=== PATIENT | female | born 1985 | race Caucasian/White ===

== ENCOUNTER 2017-04-22 15:48 | Emergency (ER) | payer OTHER ==
[~2017-04-22] VITALS: Ht 162.6 cm; Wt 83.9 kg
[2017-04-22 15:54] VITALS: BP 114/61
== END 2017-04-22 18:15 | disposition left against medical advice (07) ==
LOC: ED 15:48
DX: Z53.21 Procedure and treatment not carried out due to patient leaving prior to being seen by health care provider (principal)

== ENCOUNTER 2017-07-30 15:54 | Emergency (ER) | payer OTHER ==
[2017-07-30 21:43] LABS: BASOPHIL % 0.7 % (0-2); PLATELET COUNT 331 x10^3mcL (130-400); RED CELL DISTRIBUTION WIDTH 13.6 % (11.5-14.5)
[2017-07-30 21:47] LABS: CALCIUM 8.9 mg/dL (8.5-10.1); CARBON DIOXIDE 31.9 mmol/L (21-32); CHLORIDE SERUM 105 mmol/L (98-107); CREATININE SERUM 0.7 mg/dL (0.6-1.0); GFR1 > 60 mL/min; GLUCOSE SERUM 121 mg/dL (74-106); MAGNESIUM 2.1 mg/dL (1.8-2.4); POTASSIUM SERUM 3.4 mmol/L (3.5-5.1); SODIUM SERUM 141 mmol/L (136-145)
[2017-07-30 22:40] VITALS: BP 122/76
[2017-07-30 22:57] LABS: AMPHETAMINE QUAL UR NONE DETECTED (NEG <=1000)
== END 2017-07-30 22:40 | disposition home or self-care (01) ==
LOC: ED 15:54
PROVIDERS: Emergency Medicine
DX: F41.0 Panic disorder [episodic paroxysmal anxiety] (principal); F31.9 Bipolar disorder, unspecified
CPT/HCPCS: 36415

== ENCOUNTER 2017-09-02 16:52 | Emergency (ER) | payer OTHER ==
[~2017-09-02] VITALS: Ht 157.5 cm; Wt 90.9 kg
[2017-09-02 16:58] VITALS: Ht 157.5 cm; Wt 90.9 kg
[2017-09-02 17:38] VITALS: BP 119/79
== END 2017-09-02 17:38 | disposition home or self-care (01) ==
LOC: ED 16:52
DX: R19.7 Diarrhea, unspecified (principal); K60.2 Anal fissure, unspecified

== ENCOUNTER 2017-09-29 15:44 | Emergency (ER) | payer OTHER ==
[~2017-09-29] VITALS: Ht 160 cm; Wt 88.5 kg
[2017-09-29 15:52] VITALS: Ht 160 cm; Wt 88.5 kg
[2017-09-29 18:01] VITALS: BP 104/75
== END 2017-09-29 18:01 | disposition home or self-care (01) ==
LOC: ED 15:44
DX: Z76.0 Encounter for issue of repeat prescription (principal); L25.9 Unspecified contact dermatitis, unspecified cause; Z91.14 Patient's other noncompliance with medication regimen

== ENCOUNTER 2017-11-29 18:49 | Emergency (ER) | payer OTHER ==
[~2017-11-29] VITALS: Ht 160 cm; Wt 94.3 kg
[2017-11-29 18:51] VITALS: Ht 160 cm; Wt 94.3 kg
[2017-11-29 21:07] VITALS: BP 115/73
== END 2017-11-29 21:07 | disposition home or self-care (01) ==
LOC: ED 18:49
DX: R42 Dizziness and giddiness (principal); R05 Cough; R53.83 Other fatigue; Z76.0 Encounter for issue of repeat prescription

== ENCOUNTER 2018-06-04 17:50 | Emergency (ER) | payer OTHER ==
[~2018-06-04] VITALS: Ht 162.6 cm; Wt 104.3 kg
[2018-06-04 17:54] VITALS: Ht 162.6 cm; Wt 104.3 kg
[2018-06-04 20:50] VITALS: BP 111/67
== END 2018-06-04 20:50 | disposition home or self-care (01) ==
LOC: ED 17:50
DX: F41.9 Anxiety disorder, unspecified (principal); R07.89 Other chest pain; F31.9 Bipolar disorder, unspecified; F17.210 Nicotine dependence, cigarettes, uncomplicated

== ENCOUNTER 2018-06-05 15:57 | Emergency (ER) | payer OTHER ==
[~2018-06-05] VITALS: Ht 162.6 cm; Wt 99.8 kg
[2018-06-05 16:07] VITALS: Ht 162.6 cm; Wt 99.8 kg
[2018-06-05 16:59] LABS: BASOPHIL % 0.9 % (0-2); PLATELET COUNT 277 x10^3mcL (130-400); RED CELL DISTRIBUTION WIDTH 13.6 % (11.5-14.5)
[2018-06-05 17:14] LABS: CALCIUM 8.1 mg/dL (8.5-10.1); CARBON DIOXIDE 26.5 mmol/L (21-32); CHLORIDE SERUM 102 mmol/L (98-107); CREATININE SERUM 0.7 mg/dL (0.6-1.0); GFR1 > 60 mL/min; GLUCOSE SERUM 100 mg/dL (74-106); POTASSIUM SERUM 3.4 mmol/L (3.5-5.1); SODIUM SERUM 136 mmol/L (136-145)
[2018-06-05 17:16] LABS: ALBUMIN 3.3 g/dL (3.4-5.0); ALKALINE PHOSPHATASE 81 U/L (46-116); ALT/SGPT 22 U/L (14-59); AST/SGOT 11 U/L (15-37); BILIRUBIN TOTAL 0.2 mg/dL (0.20-1.00); TOTAL PROTEIN, SERUM 6.9 g/dL (6.4-8.2)
[2018-06-05 17:17] LABS: AMPHETAMINE QUAL UR NONE DETECTED (See below)
[2018-06-05 18:59] VITALS: BP 115/80
== END 2018-06-05 18:59 | disposition home or self-care (01) ==
LOC: ED 15:57
PROVIDERS: Emergency Medicine
DX: R00.2 Palpitations (principal); F41.9 Anxiety disorder, unspecified; F31.9 Bipolar disorder, unspecified; I49.9 Cardiac arrhythmia, unspecified
CPT/HCPCS: 36415; G0480

== ENCOUNTER 2018-06-06 21:30 | Emergency (ER) | payer OTHER ==
[2018-06-06 21:37] VITALS: Ht 160 cm
[2018-06-07 01:26] VITALS: BP 140/50
== END 2018-06-07 01:26 | disposition home or self-care (01) ==
LOC: ED 21:30
DX: Z76.0 Encounter for issue of repeat prescription (principal); F31.9 Bipolar disorder, unspecified; F17.210 Nicotine dependence, cigarettes, uncomplicated; F41.9 Anxiety disorder, unspecified; E66.01 Morbid (severe) obesity due to excess calories; Z68.1 Body mass index [BMI] 19.9 or less, adult; Z71.6 Tobacco abuse counseling
CPT/HCPCS: 99406

== ENCOUNTER 2018-07-03 11:15 | Emergency (ER) | payer OTHER ==
[~2018-07-03] VITALS: Ht 162.6 cm; Wt 99.8 kg
[2018-07-03 11:19] VITALS: Ht 162.6 cm; Wt 99.8 kg
[2018-07-03 13:43] VITALS: BP 120/71
== END 2018-07-03 13:43 | disposition home or self-care (01) ==
LOC: ED 11:15
DX: Z76.0 Encounter for issue of repeat prescription (principal); F41.9 Anxiety disorder, unspecified; F31.9 Bipolar disorder, unspecified; F17.210 Nicotine dependence, cigarettes, uncomplicated; Z86.79 Personal history of other diseases of the circulatory system

== ENCOUNTER 2018-09-28 14:10 | Emergency (ER) | payer OTHER ==
[~2018-09-28] VITALS: Ht 160 cm; Wt 86.2 kg
[2018-09-28 14:38] VITALS: Ht 160 cm; Wt 86.2 kg
[2018-09-28 16:25] VITALS: BP 110/70
== END 2018-09-28 16:25 | disposition home or self-care (01) ==
LOC: ED 14:10
DX: F41.9 Anxiety disorder, unspecified (principal); F17.210 Nicotine dependence, cigarettes, uncomplicated; Z76.0 Encounter for issue of repeat prescription; Z13.89 Encounter for screening for other disorder; I47.1 Supraventricular tachycardia; I49.9 Cardiac arrhythmia, unspecified
CPT/HCPCS: 99406

== ENCOUNTER 2018-12-20 10:15 | Emergency (ER) | payer OTHER ==
[~2018-12-20] VITALS: Ht 160 cm; Wt 99.8 kg
[2018-12-20 10:21] VITALS: Ht 160 cm; Wt 99.8 kg
[2018-12-20 11:13] LABS: UA SPECIFIC GRAVITY 1.025 (1.005-1.035); microscopic required? YES; urine erythrocyte 3+ (NEGATIVE)
[2018-12-20 11:16] LABS: CALCIUM 8.4 mg/dL (8.5-10.1); CARBON DIOXIDE 30.8 mmol/L (21-32); CHLORIDE SERUM 106 mmol/L (98-107); CREATININE SERUM 0.7 mg/dL (0.6-1.0); GFR1 > 60 mL/min; GLUCOSE SERUM 102 mg/dL (74-106); POTASSIUM SERUM 3.9 mmol/L (3.5-5.1); SODIUM SERUM 140 mmol/L (136-145)
[2018-12-20 11:18] LABS: BASOPHIL % 0.3 % (0-2); PLATELET COUNT 334 x10^3mcL (130-400); RED CELL DISTRIBUTION WIDTH 13.4 % (11.5-14.5)
[2018-12-20 11:22] LABS: ALKALINE PHOSPHATASE 104 U/L (46-116); ALT/SGPT 25 U/L (14-59); AST/SGOT 11 U/L (15-37); BILIRUBIN TOTAL 0.14 mg/dL (0.20-1.00); TOTAL PROTEIN, SERUM 6.8 g/dL (6.4-8.2)
[2018-12-20 11:24] LABS: ALBUMIN 3.3 g/dL (3.4-5.0)
[2018-12-20 11:41] LABS: AMPHETAMINE QUAL UR POSITIVE (See below)
[2018-12-20 18:33] VITALS: BP 109/71
== END 2018-12-20 20:04 ==
LOC: ED 10:15
PROVIDERS: Emergency Medicine
DX: R45.851 Suicidal ideations (principal); T63.441A Toxic effect of venom of bees, accidental (unintentional), initial encounter; N39.0 Urinary tract infection, site not specified; F31.9 Bipolar disorder, unspecified; I49.9 Cardiac arrhythmia, unspecified; I47.1 Supraventricular tachycardia; Y92.89 Other specified places as the place of occurrence of the external cause
CPT/HCPCS: 36415; G0480; Q0163

== ENCOUNTER 2019-02-08 19:41 | Emergency (ER) | payer OTHER ==
[~2019-02-08] VITALS: Ht 160 cm; Wt 105.7 kg
[2019-02-08 20:08] VITALS: BP 113/79; Ht 160 cm; Wt 105.7 kg
== END 2019-02-08 21:59 | disposition home or self-care (01) ==
LOC: ED 19:41
DX: J02.9 Acute pharyngitis, unspecified (principal); F41.9 Anxiety disorder, unspecified; F32.9 Major depressive disorder, single episode, unspecified; F17.210 Nicotine dependence, cigarettes, uncomplicated
CPT/HCPCS: 99406

== ENCOUNTER 2019-02-13 17:14 | Emergency (ER) | payer OTHER ==
[~2019-02-13] VITALS: Ht 167.6 cm; Wt 103.9 kg
[2019-02-13 17:22] VITALS: Ht 167.6 cm; Wt 103.9 kg
[2019-02-13 19:35] VITALS: BP 134/85
== END 2019-02-13 19:41 | disposition home or self-care (01) ==
LOC: ED 17:14
DX: F41.9 Anxiety disorder, unspecified (principal); F31.9 Bipolar disorder, unspecified; Z76.0 Encounter for issue of repeat prescription
CPT/HCPCS: J7030

== ENCOUNTER 2019-06-28 14:45 | Emergency (ER) | payer OTHER ==
[~2019-06-28] VITALS: Ht 165.1 cm; Wt 91.2 kg
[2019-06-28 14:53] VITALS: Ht 165.1 cm; Wt 91.2 kg
[2019-06-28 16:31] VITALS: BP 102/51
== END 2019-06-28 16:31 | disposition home or self-care (01) ==
LOC: ED 14:45
DX: F41.9 Anxiety disorder, unspecified (principal); F31.9 Bipolar disorder, unspecified; Z76.0 Encounter for issue of repeat prescription

== ENCOUNTER 2019-07-31 19:15 | Emergency (ER) | payer OTHER ==
[~2019-07-31] VITALS: Ht 165.1 cm; Wt 86.2 kg
[2019-07-31 19:21] VITALS: Ht 165.1 cm; Wt 86.2 kg
[2019-07-31 20:42] LABS: BASOPHIL % 0.2 % (0-2); PLATELET COUNT 353 x10^3mcL (130-400)
[2019-07-31 20:48] LABS: CALCIUM 8.4 mg/dL (8.5-10.1); CARBON DIOXIDE 25.2 mmol/L (21-32); CHLORIDE SERUM 105 mmol/L (98-107); CREATININE SERUM 0.8 mg/dL (0.6-1.0); GFR1 > 60 mL/min; GLUCOSE SERUM 97 mg/dL (74-106); POTASSIUM SERUM 3.3 mmol/L (3.5-5.1); SODIUM SERUM 140 mmol/L (136-145)
[2019-07-31 20:53] LABS: ALBUMIN 3.6 g/dL (3.4-5.0); ALKALINE PHOSPHATASE 90 U/L (46-116); ALT/SGPT 19 U/L (14-59); AST/SGOT 12 U/L (15-37); BILIRUBIN TOTAL 0.2 mg/dL (0.20-1.00); TOTAL PROTEIN, SERUM 7.6 g/dL (6.4-8.2)
[2019-07-31 20:57] LABS: AMPHETAMINE QUAL UR POSITIVE (See below)
[2019-07-31 22:43] LABS: microscopic required? NO
[2019-07-31 22:56] LABS: urine erythrocyte NEGATIVE (NEGATIVE)
[2019-08-01 15:35] VITALS: BP 108/48
== END 2019-08-01 15:35 ==
LOC: ED 19:15
PROVIDERS: Emergency Medicine
DX: R45.851 Suicidal ideations (principal); D72.829 Elevated white blood cell count, unspecified; F31.9 Bipolar disorder, unspecified; F20.9 Schizophrenia, unspecified
CPT/HCPCS: 36415; 87804; G0480

== ENCOUNTER 2019-09-04 12:17 | Emergency (ER) | payer OTHER ==
[~2019-09-04] VITALS: Ht 162.6 cm; Wt 96.6 kg
[2019-09-04 12:19] VITALS: BP 114/78; Ht 162.6 cm; Wt 96.6 kg
== END 2019-09-04 12:55 | disposition home or self-care (01) ==
LOC: ED 12:17
DX: F31.9 Bipolar disorder, unspecified (principal); F20.9 Schizophrenia, unspecified; Z76.0 Encounter for issue of repeat prescription

== ENCOUNTER 2020-05-30 12:32 | Emergency (ER) | payer OTHER ==
[~2020-05-30] VITALS: Ht 165.1 cm; Wt 72.6 kg
[2020-05-30 12:43] VITALS: Ht 165.1 cm; Wt 72.6 kg
[2020-05-30 13:20] LABS: BASOPHIL % 0.5 % (0-2); PLATELET COUNT 283 x10^3mcL (130-400); RED CELL DISTRIBUTION WIDTH 14.3 % (11.5-14.5)
[2020-05-30 13:32] LABS: CALCIUM 8.7 mg/dL (8.5-10.1); CARBON DIOXIDE 27.5 mmol/L (21-32); CHLORIDE SERUM 107 mmol/L (98-107); CREATININE SERUM 0.8 mg/dL (0.6-1.0); GFR1 > 60 mL/min; GLUCOSE SERUM 109 mg/dL (74-106); POTASSIUM SERUM 3.8 mmol/L (3.5-5.1); SODIUM SERUM 140 mmol/L (136-145)
[2020-05-30 13:36] LABS: ALKALINE PHOSPHATASE 71 U/L (46-116); ALT/SGPT 20 U/L (14-59); AST/SGOT 12 U/L (15-37); BILIRUBIN TOTAL 0.3 mg/dL (0.20-1.00)
[2020-05-30 13:39] LABS: ALBUMIN 3.3 g/dL (3.4-5.0)
[2020-05-30 14:04] LABS: microscopic required? YES; urine erythrocyte NEGATIVE (NEGATIVE)
[2020-05-30 15:09] LABS: AMPHETAMINE QUAL UR POSITIVE (See below)
[2020-05-31 07:16] VITALS: BP 94/61
== END 2020-05-31 07:16 ==
LOC: ED 12:32
PROVIDERS: Emergency Medicine
DX: F31.9 Bipolar disorder, unspecified (principal); F17.210 Nicotine dependence, cigarettes, uncomplicated; Z20.828 Contact with and (suspected) exposure to other viral communicable diseases
CPT/HCPCS: 99406; G0480; Q0092; U0003-CS